=== PATIENT | female | born 1985 | race Caucasian/White ===

== ENCOUNTER → 2017-11-30 | Outpatient (CLI) | payer BC ==
--- NOTE | 2017-11-30 11:56 | RADIOLOGY IMAGING REPORT ---
FACILITY: [facility] [place] PATIENT NAME: Hanane Cordero : 1985 MR: [id number] V: [id number] EXAM DATE: ORDERING PHYSICIAN: GAYLA MERRITT TECHNOLOGIST: Location: [facility] - [place], [place] Patient: Hanane Cordero : 1985 Visit/Account:[id number] Date of Sevice: 11/30/2017 Technique: CHEST PA AND LAT HISTORY: Chest pain COMPARISON: None available Findings: The lungs are clear. No pleural effusion or pneumothorax. The cardiomediastinal silhouett e is normal. Impression: 1. No acute cardiopulmonary process. Report Dictated By: Shankar Christine DO at 11/30/2017 11:51 AM Report E-Signed By: Shankar Christine DO at 11/30/2017 11:52 AM WSN:[id number]
== END ==
LOC: RAD 11:30
PROVIDERS: ATTEND Nurse Practitioner Family
DX: R07.9 Chest pain, unspecified (principal)
CPT/HCPCS: 71046